=== PATIENT | male | born 1995 | race Caucasian/White ===

== ENCOUNTER 2022-10-13 20:48 | Observation (INO) | payer OTHER ==
[2022-10-13 21:02] VITALS: BMI 34.2
[2022-10-13] MEDS ORDERED: KETOROLAC TROMETHAMINE 15 MG/ML VIAL IVPUSH ONE (21:42)
[2022-10-13] MEDS ORDERED: SODIUM CHLORIDE 0.9% 500 ML INFUS.BAG IV ONE (21:42)
[2022-10-13] MEDS ORDERED: KETOROLAC TROMETHAMINE 15 MG/ML VIAL ONE (21:55)
[2022-10-13 22:27] LABS: BASO % 0.3 % (0-2.0); EOS % 0.4 % (0-4.5); HEMATOCRIT 43.5 % (35.4-49); HEMOGLOBIN 14.9 GM/dL (11.7-16.9); LYMPH % 10.2 % (8-40); MCH 27.8 pg (25.7-33.7); MCHC 34.2 g/dl (32.0-35.9); MEAN CELL VOLUME 81.1 fl (80-96); MEAN PLT VOLUME 7.3 fl (7.5-11.1); MONO % 4.4 % (3.8-10.2); NEUT % 84.7 % (42.8-82.8); PLATELET COUNT 324 10^3/uL (134-434); RBC 5.35 M/mm3 (4.00-5.60); RDW 13.4 % (11.9-15.9); WHITE BLOOD COUNT 16.2 K/mm3 (4.0-10.0)
[2022-10-13] MEDS ORDERED: morphine CARPU-JECT 4 MG/1 ML DISP.SYRIN IVPUSH ONE (22:53)
[2022-10-13] MEDS ORDERED: ONDANSETRON 4 MG/2 ML VIAL IVPUSH ONE (22:54)
[2022-10-13 22:55] LABS: CALCIUM 9.4 mg/dL (8.5-10.1)
[2022-10-13] MEDS ORDERED: morphine SULFATE 4 MG/ML VIAL ONE (22:56)
[2022-10-13 22:58] LABS: CREATININE 1.2 mg/dL (0.55-1.3)
[2022-10-13 23:00] LABS: BILIRUBIN,TOTAL 0.4 mg/dL (0.2-1); TOT PROT 7.4 g/dl (6.4-8.2)
[2022-10-13 23:49] LABS: PH,URINE 6.5 (5.0-8.0); URINE APPEARANCE CLEAR; URINE BILIRUBIN NEGATIVE (NEGATIVE); URINE COLOR YELLOW; URINE GLUCOSE (UA) NEGATIVE (NEGATIVE); URINE KETONE NEGATIVE (NEGATIVE); URINE LEUK ESTERASE NEGATIVE (NEGATIVE); URINE NITRITE NEGATIVE (NEGATIVE); URINE PROTEIN NEGATIVE (NEGATIVE)
[2022-10-13 23:55] LABS: EPI CELLS 6.4 /uL (0-25.1); URINE RBC 169.3 /uL (0-23.9); URINE WBC 25.8 /uL (0-25.8)
[2022-10-14] MEDS ORDERED: ONDANSETRON 4 MG/2 ML VIAL ONE ×2 (00:16→14:46)
[2022-10-14] MEDS ORDERED: ACETAMINOPHEN 1000 MG/100 ML BAG IVPB ONE (00:33)
[2022-10-14] MEDS ORDERED: morphine CARPU-JECT 4 MG/1 ML DISP.SYRIN IVPUSH ONE (00:34)
[2022-10-14] MEDS ORDERED: ACETAMINOPHEN INJECTION 100 ML IVPB ONE ×2 (00:39→16:14)
[2022-10-14] MEDS ORDERED: morphine SULFATE 4 MG/ML VIAL ONE (00:39)
[2022-10-14] MEDS ORDERED: TAMSULOSIN HCL 0.4 MG CAP PO ONE (01:30)
[2022-10-14] MEDS ORDERED: TAMSULOSIN HCL 0.4 MG CAP ONE ×2 (01:41→09:07)
[2022-10-14] MEDS ORDERED: ONDANSETRON 4 MG/2 ML VIAL IVPUSH PRN ×3 (03:42→18:19)
[2022-10-14] MEDS ORDERED: KETOROLAC TROMETHAMINE 15 MG/ML VIAL IVPUSH PRN ×2 (03:43→16:25)
[2022-10-14] MEDS ORDERED: ACETAMINOPHEN 1000 MG/100 ML BAG IVPB SCH (03:45)
[2022-10-14] MEDS ORDERED: LACTATED RINGERS SOLUTION 1,000 ML/1,000 ML INFUS.BAG IV SCH ×2 (04:00→16:25)
[2022-10-14 08:17] LABS: POTASSIUM 3.9 mmol/L (3.5-5.1)
[2022-10-14] MEDS ORDERED: TAMSULOSIN HCL 0.4 MG CAP PO SCH (08:30)
[2022-10-14 08:33] LABS: BASO % 0.2 % (0-2.0); EOS % 1.4 % (0-4.5); HEMATOCRIT 40.5 % (35.4-49); HEMOGLOBIN 13.9 GM/dL (11.7-16.9); LYMPH % 31.9 % (8-40); MCH 28.2 pg (25.7-33.7); MCHC 34.4 g/dl (32.0-35.9); MEAN CELL VOLUME 82.1 fl (80-96); MEAN PLT VOLUME 7.5 fl (7.5-11.1); MONO % 6.2 % (3.8-10.2); NEUT % 60.3 % (42.8-82.8); PLATELET COUNT 284 10^3/uL (134-434); RBC 4.93 M/mm3 (4.00-5.60); RDW 13.5 % (11.9-15.9); WHITE BLOOD COUNT 11.2 K/mm3 (4.0-10.0)
[2022-10-14 08:47] LABS: ALBUMIN 3.7 g/dl (3.4-5.0); BLOOD UREA NITROGEN 8.9 mg/dL (7-18); CALCIUM 8.8 mg/dL (8.5-10.1); MAGNESIUM 1.8 mg/dL (1.8-2.4)
[2022-10-14 08:50] LABS: CREATININE 0.8 mg/dL (0.55-1.3); PHOSPHOROUS 3.7 mg/dL (2.5-4.9)
[2022-10-14 08:52] LABS: BILIRUBIN,TOTAL 0.5 mg/dL (0.2-1); TOT PROT 6.6 g/dl (6.4-8.2)
[2022-10-14] MEDS ORDERED: CEFTRIAXONE 1 GM/50 ML BAG ONE (09:07)
[2022-10-14 09:16] LABS: INR 1.11 (0.83-1.09); PROTHROMBIN TIME (PATIENT) 12.9 SEC (9.7-13.0)
[2022-10-14 09:18] LABS: ACTIVATED PTT 29.4 SECONDS (25.2-36.5)
[2022-10-14] MEDS ORDERED: CEFTRIAXONE 1 GM in DEXTROSE 5%-WATER - 50 ML IVPB SCH (10:00)
[2022-10-14] MEDS ORDERED: PROPOFOL 20 ML ONE (14:20)
[2022-10-14] MEDS ORDERED: MIDAZOLAM HCL 2 MG/2 ML SINGLE DOSE VIAL ONE ×2 (14:21→14:46)
[2022-10-14] MEDS ORDERED: ceFAZolin SODIUM 1 GM VIAL IVPB ONE (14:35)
[2022-10-14] MEDS ORDERED: IOHEXOL 300 MG/ML INFUS..BTL IV ONE ×2 (14:38)
[2022-10-14] MEDS ORDERED: ceFAZolin SODIUM 1 GM VIAL ONE (14:46)
[2022-10-14] MEDS ORDERED: KETOROLAC TROMETHAMINE 30 MG/1 ML VIAL ONE (14:46)
[2022-10-14] MEDS ORDERED: DEXAMETHASONE SOD PHOSPHATE 4 MG/1 ML VIAL ONE (14:46)
[2022-10-14 17:50] VITALS: TEMP 97.1
[2022-10-14] MEDS ORDERED: ACETAMINOPHEN 1000 MG/100 ML BAG IVPB PRN (18:19)
[2022-10-14] MEDS ORDERED: LACTATED RINGERS SOLUTION 1,000 ML IV SCH (18:30)
[2022-10-14] MEDS ORDERED: oxyCODONE HCL 5 MG TABLET PO ONE (18:39)
[2022-10-14 19:19] VITALS: BP 145/89; PULSE 90; RESP 20
[2022-10-14] MEDS ORDERED: oxyCODONE HCL 5 MG TABLET PO PRN ×2 (19:24)
[2022-10-15] MEDS ORDERED: TAMSULOSIN HCL 0.4 MG CAP PO SCH (08:30)
[2022-10-15] MEDS ORDERED: CEFTRIAXONE 1 GM in DEXTROSE 5%-WATER - 50 ML IVPB SCH (10:00)
== END 2022-10-14 19:28 | disposition home or self-care (01) ==
LOC: JER 20:48 → JERBED 10-14 02:25
PROVIDERS: ADMIT Internal Medicine
PROC: BT1FZZZ Fluoroscopy of Left Kidney, Ureter and Bladder (ICD-10-PCS; 2022-10-14)
PROC: 3E03329 Introduction of Other Anti-infective into Peripheral Vein, Percutaneous Approach (ICD-10-PCS; 2022-10-14)
PROC: 3E0337Z Introduction of Electrolytic and Water Balance Substance into Peripheral Vein, Percutaneous Approach (ICD-10-PCS; 2022-10-14)
PROC: 3E033NZ Introduction of Analgesics, Hypnotics, Sedatives into Peripheral Vein, Percutaneous Approach (ICD-10-PCS; 2022-10-14)
PROC: 0TC78ZZ Extirpation of Matter from Left Ureter, Via Natural or Artificial Opening Endoscopic (ICD-10-PCS; principal; 2022-10-14 15:00)
DX: K80.50 Calculus of bile duct without cholangitis or cholecystitis without obstruction (principal); N20.0 Calculus of kidney; K80.20 Calculus of gallbladder without cholecystitis without obstruction; E66.8 Other obesity; Z68.34 Body mass index [BMI] 34.0-34.9, adult; N39.0 Urinary tract infection, site not specified; Z96.0 Presence of urogenital implants; E78.5 Hyperlipidemia, unspecified; Z86.19 Personal history of other infectious and parasitic diseases
CPT/HCPCS: 36415; 74176-TC; 76000-TC-FY; 80053; 81003; 82360; 83735; 84100; 85025; 85610; 85730; 87040; 87086; 88300-TC; 93005; 93010; 94760; 96361; 96374; 96375; 96376; 99285-25; C1747; C1769; C1894; C2617; G0378

== ENCOUNTER 2023-07-18 15:20 | Emergency (ER) | payer OTHER ==
[2023-07-18 15:48] VITALS: RESP 20; BMI 34.2
[2023-07-18 17:13] LABS: BASO % 0.6 % (0-2.0); EOS % 2.1 % (0-4.5); HEMATOCRIT 46.1 % (35.4-49); HEMOGLOBIN 15.6 GM/dL (11.7-16.9); LYMPH % 29.8 % (8-40); MCH 27.9 pg (25.7-33.7); MEAN CELL VOLUME 82.1 fl (80-96); MEAN PLT VOLUME 7.3 fl (7.5-11.1); MONO % 6.9 % (3.8-10.2); NEUT % 60.6 % (42.8-82.8); PLATELET COUNT 331 10^3/uL (134-434); RBC 5.61 M/mm3 (4.00-5.60); RDW 13.6 % (11.9-15.9); WHITE BLOOD COUNT 13.2 K/mm3 (4.0-10.0)
[2023-07-18 17:28] LABS: BLOOD UREA NITROGEN 14.1 mg/dL (7-18); CALCIUM 9.4 mg/dL (8.5-10.1)
[2023-07-18 17:33] LABS: BILIRUBIN,TOTAL 0.4 mg/dL (0.2-1); TOT PROT 7.5 g/dl (6.4-8.2)
[2023-07-18 18:32] VITALS: BP 152/93; PULSE 97; TEMP 97.8
== END 2023-07-18 18:33 | disposition home or self-care (01) ==
LOC: JER 15:20
DX: R07.89 Other chest pain (principal)
CPT/HCPCS: 36415; 80053; 84484; 85025; 93005; 93010; 99284-25

== ENCOUNTER 2023-08-18 18:33 | Inpatient (IN) | payer OTHER ==
[2023-08-18] MEDS ORDERED: KETOROLAC TROMETHAMINE 15 MG/ML VIAL ONE (19:40)
[2023-08-18] MEDS: SODIUM CHLORIDE 1,000 ML IV STA (19:53)
[2023-08-18] MEDS: KETOROLAC TROMETHAMINE 15 MG/ML VIAL IVPUSH ONE (19:54)
[2023-08-18 20:13] LABS: BASO % 0.4 % (0-2.0); EOS % 1.2 % (0-4.5); HEMATOCRIT 44.5 % (35.4-49); HEMOGLOBIN 15.1 GM/dL (11.7-16.9); LYMPH % 23.2 % (8-40); MCH 27.4 pg (25.7-33.7); MCHC 33.9 g/dl (32.0-35.9); MEAN CELL VOLUME 80.9 fl (80-96); MEAN PLT VOLUME 7.3 fl (7.5-11.1); MONO % 8.6 % (3.8-10.2); NEUT % 66.6 % (42.8-82.8); PLATELET COUNT 326 10^3/uL (134-434); RDW 13.6 % (11.9-15.9); WHITE BLOOD COUNT 13.1 K/mm3 (4.0-10.0)
[2023-08-18 20:22] LABS: POTASSIUM 3.6 mmol/L (3.5-5.1)
[2023-08-18 20:24] LABS: CALCIUM 9.6 mg/dL (8.5-10.1)
[2023-08-18 20:25] LABS: BLOOD UREA NITROGEN 13.6 mg/dL (7-18)
[2023-08-18 20:28] LABS: CREATININE 1.8 mg/dL (0.55-1.3)
[2023-08-18 20:30] LABS: BILIRUBIN,TOTAL 0.8 mg/dL (0.2-1); TOT PROT 7.4 g/dl (6.4-8.2)
[2023-08-18 20:45] LABS: EPI CELLS 34 /uL (0-25.1); HYALINE CASTS 6 /uL (0-3.1); PH,URINE 5.5 (5.0-8.0); URINE APPEARANCE CLEAR; URINE BACTERIA 8 /uL (0-1359); URINE BILIRUBIN NEGATIVE (NEGATIVE); URINE COLOR YELLOW; URINE GLUCOSE (UA) NEGATIVE (NEGATIVE); URINE KETONE TRACE (NEGATIVE); URINE LEUK ESTERASE 2+ (NEGATIVE); URINE NITRITE NEGATIVE (NEGATIVE); URINE PROTEIN TRACE (NEGATIVE); URINE RBC 34 /uL (0-23.9); URINE UROBILINOGEN 0.2 mg/dL (0.2-1.0); URINE WBC 433 /uL (0-25.8)
[2023-08-18 21:15] LABS: URINE CRYSTALS FEW CALCIUM OXALATES /hpf
[2023-08-19] MEDS ORDERED: ACETAMINOPHEN INJECTION 100 ML IVPB ONE (04:17)
[2023-08-19] MEDS: SODIUM CHLORIDE 1,000 ML IV STA (04:24)
[2023-08-19] MEDS: ACETAMINOPHEN 1000 MG/100 ML BAG IVPB ONE (04:24)
[2023-08-19] MEDS: INDOMETHACIN SODIUM TRIHYDRATE IVPUSH ONE (05:58)
[2023-08-19] MEDS: HYDROmorphone HCL 2 MG TABLET PO ONE (08:00)
[2023-08-19] MEDS ORDERED: MORPHINE SULFATE 2 MG/ML SYRINGE ONE (08:25)
[2023-08-19] MEDS: SODIUM CHLORIDE 0.9% 500 ML INFUS.BAG IV ONE (08:30)
[2023-08-19] MEDS: morphine SULFATE 4 MG/ML VIAL IVPUSH ONE (08:31)
[2023-08-19] MEDS ORDERED: TAMSULOSIN HCL 0.4 MG CAP ONE (10:39)
[2023-08-19] MEDS: TAMSULOSIN HCL 0.4 MG CAP PO SCH (10:45)
[2023-08-19] MEDS ORDERED: ACETAMINOPHEN 1000 MG/100 ML BAG IVPB PRN (12:00)
[2023-08-19] MEDS: LACTATED RINGERS SOLUTION 1,000 ML/1,000 ML INFUS.BAG IV SCH ×2 (12:11→14:11)
[2023-08-19 13:45] VITALS: BMI 37.8
[2023-08-20 09:04] LABS: HEMATOCRIT 41.4 % (35.4-49); HEMOGLOBIN 14.3 GM/dL (11.7-16.9); MCHC 34.7 g/dl (32.0-35.9); MEAN CELL VOLUME 80.6 fl (80-96); MEAN PLT VOLUME 7.4 fl (7.5-11.1); PLATELET COUNT 306 10^3/uL (134-434); RBC 5.13 M/mm3 (4.00-5.60); RDW 13.5 % (11.9-15.9); WHITE BLOOD COUNT 8.9 K/mm3 (4.0-10.0)
[2023-08-20 09:08] LABS: INR 1.06 (0.83-1.09); PROTHROMBIN TIME (PATIENT) 12.2 SEC (9.7-13.0)
[2023-08-20 09:22] LABS: POTASSIUM 3.8 mmol/L (3.5-5.1)
[2023-08-20 09:24] LABS: CALCIUM 8.8 mg/dL (8.5-10.1)
[2023-08-20 09:25] LABS: BLOOD UREA NITROGEN 8.7 mg/dL (7-18); MAGNESIUM 1.7 mg/dL (1.8-2.4)
[2023-08-20 09:28] LABS: CREATININE 0.8 mg/dL (0.55-1.3)
[2023-08-20] MEDS: MAGNESIUM SULF 50% (8.12 MEQ/2 ML-1 GM VIAL) IVPB ONE (17:10)
[2023-08-21 09:34] LABS: BASO % 0.3 % (0-2.0); EOS % 2.4 % (0-4.5); HEMATOCRIT 41.9 % (35.4-49); HEMOGLOBIN 14.6 GM/dL (11.7-16.9); LYMPH % 26.2 % (8-40); MCH 28.1 pg (25.7-33.7); MCHC 34.8 g/dl (32.0-35.9); MEAN CELL VOLUME 80.7 fl (80-96); MEAN PLT VOLUME 7.4 fl (7.5-11.1); NEUT % 63.1 % (42.8-82.8); PLATELET COUNT 316 10^3/uL (134-434); RBC 5.19 M/mm3 (4.00-5.60); RDW 13.1 % (11.9-15.9); WHITE BLOOD COUNT 8.8 K/mm3 (4.0-10.0)
[2023-08-21 09:47] LABS: POTASSIUM 3.5 mmol/L (3.5-5.1)
[2023-08-21 10:01] LABS: CALCIUM 8.9 mg/dL (8.5-10.1)
[2023-08-21 10:02] LABS: ALBUMIN 3.6 g/dl (3.4-5.0); BLOOD UREA NITROGEN 8.8 mg/dL (7-18)
[2023-08-21 10:05] LABS: CREATININE 0.8 mg/dL (0.55-1.3)
[2023-08-21 10:07] LABS: BILIRUBIN,TOTAL 0.9 mg/dL (0.2-1); TOT PROT 7.2 g/dl (6.4-8.2)
[2023-08-21] MEDS ORDERED: MIDAZOLAM HCL 2 MG/2 ML SINGLE DOSE VIAL ONE (12:00)
[2023-08-21] MEDS ORDERED: PROPOFOL 20 ML ONE ×2 (12:00→12:13)
[2023-08-21] MEDS: ceFAZolin SODIUM 1 GM VIAL IVPB ONE (12:15)
[2023-08-21] MEDS ORDERED: ONDANSETRON 4 MG/2 ML VIAL ONE (13:35)
[2023-08-21] MEDS ORDERED: oxyCODONE HCL 5 MG TABLET ONE (13:36)
[2023-08-21] MEDS: oxyCODONE HCL 5 MG TABLET PO PRN (13:39)
[2023-08-21] MEDS: ONDANSETRON 4 MG/2 ML VIAL IVPUSH PRN (13:43)
[2023-08-21] MEDS: LACTATED RINGERS SOLUTION 1,000 ML IV SCH (14:45)
[2023-08-21] MEDS: amLODIPine BESYLATE 5 MG TABLET (FP) PO SCH (17:23)
[2023-08-21] MEDS: POLYETHYLENE GLYCOL (HEALTHYLAX) 3350 17 GM PACKET PO ONE (20:54)
[2023-08-21] MEDS: ACETAMINOPHEN 1000 MG/100 ML BAG IVPB PRN (20:58)
[2023-08-22 05:26] VITALS: RESP 18
[2023-08-22] MEDS: hydrALAZINE HCL 20 MG/ML VIAL IVPB ONE (05:36)
[2023-08-22] MEDS: TAMSULOSIN HCL 0.4 MG CAP PO SCH (09:43)
[2023-08-22 11:06] VITALS: TEMP 98.4
[2023-08-22] MEDS: amLODIPine BESYLATE 5 MG TABLET (FP) PO ONE (14:17)
[2023-08-22] MEDS: LIDOCAINE 5% TOPICAL PATCH TP ONE (14:24)
[2023-08-22 15:34] VITALS: BP 135/94; PULSE 96
[2023-08-22] MEDS ORDERED: LIDOCAINE PATCH REMOVAL MC SCH (22:00)
== END 2023-08-22 16:57 | disposition home or self-care (01) | DRG 465 ==
LOC: JER 18:33 → JERBED 08-19 09:29 → J8W 08-19 10:58
PROVIDERS: ADMIT Internal Medicine; ATTEND Nurse Practitioner Family
PROC: 0TF78ZZ Fragmentation in Left Ureter, Via Natural or Artificial Opening Endoscopic (ICD-10-PCS; principal; 2023-08-21 13:00)
PROC: 0T778DZ Dilation of Left Ureter with Intraluminal Device, Via Natural or Artificial Opening Endoscopic (ICD-10-PCS; 2023-08-21 13:00)
PROC: BT1FZZZ Fluoroscopy of Left Kidney, Ureter and Bladder (ICD-10-PCS; 2023-08-21 13:00)
DX: N13.2 Hydronephrosis with renal and ureteral calculous obstruction (principal); N17.9 Acute kidney failure, unspecified; F17.200 Nicotine dependence, unspecified, uncomplicated
CPT/HCPCS: 36415; 74176-TC; 76000-TC-FY; 80048; 80053; 81003; 83735; 84100; 85025; 85027; 85610; 87086; 94760; 99285-25; C1747; C1758; C2617; J0131

== ENCOUNTER 2023-08-25 20:13 | Day surgery (SDC) | payer OTHER ==
[2023-08-25] MEDS: LACTATED RINGERS SOLUTION 1000 ML INFUS.BAG IV ONE (20:40)
[2023-08-25] MEDS: morphine CARPU-JECT 4 MG/1 ML DISP.SYRIN IVPUSH ONE (20:40)
[2023-08-25] MEDS: KETOROLAC TROMETHAMINE 15 MG/ML VIAL IVPUSH ONE (20:40)
[2023-08-25] MEDS ORDERED: morphine SULFATE 4 MG/ML VIAL ONE (20:42)
[2023-08-25 21:00] LABS: BASO % 0.2 % (0-2.0); EOS % 0.2 % (0-4.5); HEMATOCRIT 42.5 % (35.4-49); HEMOGLOBIN 14.5 GM/dL (11.7-16.9); LYMPH % 8.9 % (8-40); MCH 27.5 pg (25.7-33.7); MCHC 34.2 g/dl (32.0-35.9); MEAN CELL VOLUME 80.4 fl (80-96); MEAN PLT VOLUME 7.2 fl (7.5-11.1); MONO % 4.4 % (3.8-10.2); NEUT % 86.3 % (42.8-82.8); PLATELET COUNT 348 10^3/uL (134-434); RBC 5.29 M/mm3 (4.00-5.60); RDW 13.6 % (11.9-15.9)
[2023-08-25 21:07] LABS: INR 1.07 (0.83-1.09); PROTHROMBIN TIME (PATIENT) 12.1 SEC (9.7-13.0)
[2023-08-25 21:10] LABS: ACTIVATED PTT 28.8 SECONDS (25.2-36.5)
[2023-08-25] MEDS: ONDANSETRON 4 MG/2 ML VIAL IVPUSH ONE (21:37)
[2023-08-25] MEDS ORDERED: ONDANSETRON 4 MG/2 ML VIAL ONE (21:39)
[2023-08-25] MEDS: HYDROmorphone HCl 2 MG/ML VIAL IVPUSH ONE (22:12)
[2023-08-25] MEDS ORDERED: HYDROmorphone HCL CARPU-JECT 2 MG/1 ML DISP.SYRIN ONE (22:13)
[2023-08-25 22:16] LABS: LACTIC ACID 2.2 mmol/L (0.4-2.0)
[2023-08-25 22:33] LABS: POTASSIUM 3.5 mmol/L (3.5-5.1)
[2023-08-25 22:35] LABS: ALBUMIN 4.2 g/dl (3.4-5.0); BLOOD UREA NITROGEN 14.6 mg/dL (7-18); CALCIUM 9.6 mg/dL (8.5-10.1)
[2023-08-25 22:38] LABS: CREATININE 1.3 mg/dL (0.55-1.3)
[2023-08-25 22:40] LABS: BILIRUBIN,TOTAL 0.5 mg/dL (0.2-1); TOT PROT 7.6 g/dl (6.4-8.2)
[2023-08-25 22:43] LABS: EPI CELLS 6 /uL (0-25.1); HYALINE CASTS 0 /uL (0-3.1); URINE APPEARANCE CLEAR; URINE BACTERIA 2 /uL (0-1359); URINE BILIRUBIN NEGATIVE (NEGATIVE); URINE COLOR YELLOW; URINE GLUCOSE (UA) NEGATIVE (NEGATIVE); URINE KETONE 2+ (NEGATIVE); URINE LEUK ESTERASE TRACE (NEGATIVE); URINE NITRITE NEGATIVE (NEGATIVE); URINE PROTEIN NEGATIVE (NEGATIVE); URINE RBC 202 /uL (0-23.9); URINE UROBILINOGEN 0.2 mg/dL (0.2-1.0); URINE WBC 58 /uL (0-25.8)
[2023-08-26] MEDS ORDERED: TAMSULOSIN HCL 0.4 MG CAP PO ONE (01:27)
[2023-08-26] MEDS: HYDROmorphone HCl 2 MG/ML VIAL IVPUSH ONE (01:39)
[2023-08-26] MEDS: SODIUM CHLORIDE 0.9% 500 ML INFUS.BAG IV ONE (01:39)
[2023-08-26] MEDS: CEFTRIAXONE 1,000 MG in DEXTROSE 5%-WATER - 50 ML IVPB ONE (01:40)
[2023-08-26] MEDS ORDERED: HYDROmorphone HCL CARPU-JECT 2 MG/1 ML DISP.SYRIN ONE (01:44)
[2023-08-26] MEDS ORDERED: CEFTRIAXONE 1 GM/50 ML BAG ONE (01:45)
[2023-08-26] MEDS ORDERED: TAMSULOSIN HCL 0.4 MG CAP ONE (02:14)
[2023-08-26] MEDS: SODIUM CHLORIDE 1,000 ML IV SCH ×2 (02:16→10:25)
[2023-08-26] MEDS: TAMSULOSIN HCL 0.4 MG CAP PO ONE (02:16)
[2023-08-26] MEDS ORDERED: ONDANSETRON 4 MG/2 ML VIAL IVPUSH PRN ×2 (02:35→10:06)
[2023-08-26] MEDS: KETOROLAC TROMETHAMINE 15 MG/ML VIAL IVPUSH PRN (04:40)
[2023-08-26] MEDS: morphine SULFATE 4 MG/ML VIAL IVPUSH PRN ×2 (04:47→13:40)
[2023-08-26 05:05] VITALS: BMI 36.8
[2023-08-26] MEDS: amLODIPine BESYLATE 5 MG TABLET (FP) PO SCH ×2 (05:15→11:18)
[2023-08-26] MEDS ORDERED: SUCCINYLCHOLINE CHLORIDE 200 MG/10 ML SYRINGE ONE (08:14)
[2023-08-26] MEDS ORDERED: PROPOFOL 40 ML ONE (08:14)
[2023-08-26] MEDS ORDERED: MIDAZOLAM HCL 2 MG/2 ML SINGLE DOSE VIAL ONE (08:14)
[2023-08-26] MEDS ORDERED: GLYCOPYRROLATE 0.2 MG/1 ML VIAL ONE (08:21)
[2023-08-26] MEDS: ceFAZolin SODIUM 1 GM VIAL IVPB ONE (08:41)
[2023-08-26] MEDS ORDERED: LACTATED RINGERS SOLUTION 1,000 ML IV SCH ×2 (09:30→10:06)
[2023-08-26] MEDS ORDERED: ACETAMINOPHEN INJECTION 100 ML IVPB ONE (09:48)
[2023-08-26] MEDS: ACETAMINOPHEN 1000 MG/100 ML BAG IVPB PRN (09:49)
[2023-08-26] MEDS ORDERED: CEFTRIAXONE 1 GM in DEXTROSE 5%-WATER - 50 ML IVPB SCH (10:00)
[2023-08-26] MEDS ORDERED: KETOROLAC TROMETHAMINE 15 MG/ML VIAL IVPUSH PRN (10:06)
[2023-08-26] MEDS ORDERED: ACETAMINOPHEN 1000 MG/100 ML BAG IVPB PRN (10:06)
[2023-08-26 11:14] VITALS: BP 142/96; PULSE 75; RESP 20; TEMP 97.8
[2023-08-26] MEDS: CEFTRIAXONE 1 GM in DEXTROSE 5%-WATER - 50 ML IVPB SCH (11:18)
[2023-08-26 12:06] LABS: BASO % 0.3 % (0-2.0); EOS % 1.4 % (0-4.5); HEMATOCRIT 39.3 % (35.4-49); HEMOGLOBIN 13.4 GM/dL (11.7-16.9); LYMPH % 22.9 % (8-40); MCH 27.6 pg (25.7-33.7); MEAN CELL VOLUME 81.3 fl (80-96); MEAN PLT VOLUME 7.3 fl (7.5-11.1); MONO % 7.4 % (3.8-10.2); PLATELET COUNT 301 10^3/uL (134-434); RBC 4.84 M/mm3 (4.00-5.60); RDW 13.3 % (11.9-15.9)
[2023-08-26 12:24] LABS: POTASSIUM 3.5 mmol/L (3.5-5.1)
[2023-08-26 12:30] LABS: BLOOD UREA NITROGEN 10.4 mg/dL (7-18); CALCIUM 8.4 mg/dL (8.5-10.1)
[2023-08-26 12:31] LABS: ALBUMIN 3.3 g/dl (3.4-5.0)
[2023-08-26 12:32] LABS: CREATININE 1.2 mg/dL (0.55-1.3)
[2023-08-26 12:34] LABS: BILIRUBIN,TOTAL 0.4 mg/dL (0.2-1); TOT PROT 6.6 g/dl (6.4-8.2)
[2023-08-26] MEDS: ACETAMINOPHEN 1000 MG/100 ML BAG IVPB SCH (13:46)
[2023-08-26] MEDS ORDERED: KETOROLAC TROMETHAMINE 15 MG/ML VIAL IVPUSH SCH (18:45)
[2023-08-26] MEDS ORDERED: amLODIPine BESYLATE 5 MG TABLET (FP) PO SCH (22:00)
[2023-08-27] MEDS ORDERED: CEFTRIAXONE 1 GM in DEXTROSE 5%-WATER - 50 ML IVPB SCH (10:00)
[2023-09-07 19:08] LABS: CA OXALATE MONOHYDR. 20 % (.); SIZE 3x2 mm (.); WEIGHT 34 mg (.)
== END 2023-08-26 18:55 | disposition home or self-care (01) ==
LOC: JER 20:13 → JERBED 08-26 01:28 → UNDOADMOB 08-26 01:28 → INTOOBSV 08-26 01:48 → OBSVTOIN 08-26 01:48 → JERBED 08-26 04:01 → J6S 08-26 04:01 → JASUSAT 08-26 14:55 → UNDODISIN 08-26 18:55
PROVIDERS: ATTEND Internal Medicine
PROC: 3E033NZ Introduction of Analgesics, Hypnotics, Sedatives into Peripheral Vein, Percutaneous Approach (ICD-10-PCS; 2023-08-25)
PROC: 3E033NZ Introduction of Analgesics, Hypnotics, Sedatives into Peripheral Vein, Percutaneous Approach (ICD-10-PCS; 2023-08-25)
PROC: 3E033GC Introduction of Other Therapeutic Substance into Peripheral Vein, Percutaneous Approach (ICD-10-PCS; 2023-08-25)
PROC: 3E03329 Introduction of Other Anti-infective into Peripheral Vein, Percutaneous Approach (ICD-10-PCS; principal; 2023-08-26 08:30)
PROC: 3E033NZ Introduction of Analgesics, Hypnotics, Sedatives into Peripheral Vein, Percutaneous Approach (ICD-10-PCS; 2023-08-26 08:30)
PROC: 3E033NZ Introduction of Analgesics, Hypnotics, Sedatives into Peripheral Vein, Percutaneous Approach (ICD-10-PCS; 2023-08-26 08:30)
DX: N13.2 Hydronephrosis with renal and ureteral calculous obstruction (principal); R10.32 Left lower quadrant pain; R00.0 Tachycardia, unspecified; N50.812 Left testicular pain; M54.50 Low back pain, unspecified; R11.2 Nausea with vomiting, unspecified; R30.0 Dysuria; R31.9 Hematuria, unspecified; R68.83 Chills (without fever); I10 Essential (primary) hypertension
CPT/HCPCS: 36415; 74176-TC; 76000-TC-FY; 76870-TC; 80053; 81003; 82360; 83605; 85025; 85610; 85730; 86850; 86900; 86901; 87086; 93005; 93010; 94760; 99285-25; C1747; C1758; C1894; C2617; G0378; J0131